=== PATIENT | female | born 1945 | race Caucasian/White ===

== ENCOUNTER 2021-01-28 06:05 | Day surgery (SDC) | payer OTHER ==
[2021-01-28] MEDS ORDERED: Ringers Lactate 1,000 ML IV ONE ×2 (06:39→07:12)
[2021-01-28] MEDS ORDERED: CEFAZOLIN/SWI 1gm 1 GM/10 ML SYR ONE (06:39)
[2021-01-28] MEDS ORDERED: FENTANYL CITR 100 MCG/2 ML ONE (07:04)
[2021-01-28] MEDS ORDERED: dexAMETHasone 4 MG/ML VIAL ONE (07:05)
[2021-01-28] MEDS ORDERED: ROPLVACAINE HCL 40 ML ONE (07:05)
[2021-01-28] MEDS ORDERED: MIDAZOLAM HCL 2 MG/2 ML INJ ONE (07:05)
[2021-01-28] MEDS ORDERED: EPINEPHRINE/PF 1 MG/ML AMP ONE (07:12)
[2021-01-28] MEDS ORDERED: propofoL 200 MG/20 ML VIAL IV ONE (07:38)
[2021-01-28] MEDS ORDERED: ROCURONIUM 50 MG/5 ML VIAL IV ONE (07:39)
[2021-01-28] MEDS ORDERED: LIDOCAINE 2% MPF 5 ML VIAL ONE (07:39)
[2021-01-28] MEDS ORDERED: EPHEDRINE SULF 50 MG/ML VIAL ONE (08:10)
[2021-01-28] MEDS ORDERED: ONDANSETRON 4 MG/2 ML VIAL ONE (08:35)
[2021-01-28] MEDS ORDERED: KETOROLAC 30 MG/ML INJ ONE (09:46)
[2021-01-28 10:13] VITALS: TEMP 97
[2021-01-28 10:20] VITALS: BP 136/68; O2SAT 97
--- NOTE | 2021-01-28 10:56 | P.BOP ---
Preoperative diagnosis: left rotator cuff tear, impingement syndrome, bicipital tenosynovitis Postoperative diagnosis: same, left shoulder SLAP tear Primary procedure: left shoulder arthroscopic rotator cuff repair Secondary procedure: left shoulder arthroscopic SLAP debridement with biceps tenotomy Other procedure(s): left shoulder arthroscopic subacromial decompression Estimated blood loss: 10 cc Specimen: none Findings: see dictation Anesthesia: General Complications: None Implants: 1- 5.5 mm Arthrex corkscrew, 2- 4.75 mm Arthrex swivelock Fluids & blood products: per anesthesia record Transferred to: Recovery Room Condition: Good
[2021-01-28] MEDS ORDERED: HYDROCODONE/APAP 7.5/325 MG TAB ONE (11:02)
--- NOTE | 2021-01-28 11:54 | RAD REPORT ---
EXAM DESCRIPTION: RAD - Shoulder 1 View - 01/28/2021 10:18 am CLINICAL HISTORY: S/P L RCR Postsurgical left shoulder COMPARISON: Shoulder Left Wo Cont dated 10/10/2020 FINDINGS: Mild soft tissue swelling is seen about the left shoulder. Mild arthritic changes are pres ent. No fracture or dislocation seen.
--- NOTE | 2021-01-28 22:45 | OP ---
Date of Procedure: 01/28/2021 Surgeon: Jose Roa MD Preoperative Diagnoses: 1.Left shoulder rotator cuff tear. 2.Left shoulder bicipital tenosynovitis. 3.Left shoulder impingement syndrome. Postoperative Diagnoses: 1.Left shoulder rotator cuff tear. 2.Left shoulder bicipital tenosynovitis. 3.Left shoulder impingement syndrome. 4.Left shoulder SLAP tear. Procedure Performed: 1.Left shoulder arthroscopic rotator cuff repair. 2.Left shoulder arthroscopic SLAP tear debrided with biceps tenotomy. 3.Left shoulder arthroscopic subacromial decompression. Anesthesia: General endotracheal. Fluids: Per Anesthesia record. Estimated Blood Loss: Less than 10 cc. Complications: None. Implants: 1.One 5.5 mm Arthrex corkscrew. 2.Two 4.75 mm Arthrex SwiveLocks. Indication For Procedure: Kristie is a 75-year-old female who presented to my clinic with signs, symp toms, and MRI findings consistent with a left shoulder rotator cuff tear. The patient failed conserv ative treatment measures and continued pain and difficulty with activities of daily living. I discus sed with the patient at length risks and benefits associated with operative and nonoperative treatmen t. She expressed understanding and elected to proceed with operative treatment. Description Of Procedure: After informed consent was obtained, the patient was identified in the pre operative holding area. The left upper extremity was marked. The patient was then taken to PACU whe re she underwent a left upper extremity interscalene block to aid with postoperative pain control. S he was then taken back to the operating room, transferred to the operating table in the supine fashio n and placed under general endotracheal anesthesia. She was then placed in the beach chair position with her extremities well padded. Left upper extremity was examined. The patient had full range of motion without any instability noted. The left upper extremity was then prepped and draped in usual sterile fashion. A time-out was initiated. The correct patient and procedure were confirmed and rere ntified. The patient did receive her preoperative prophylactic antibiotics. A posterior portal was then created and arthroscope was brought in via the posterior portal position. Under direct visualiz ation, an anterior portal was created and a cannula was placed. Diagnostic arthroscopy was performed . The patient had overall no significant chondral injury to humeral head or glenoid surface. The pa tient was noted to have some fraying of the superior labrum consistent with a type 1 SLAP tear which was debrided using the arthroscopic shaver. There was some mild hyperemia of extra-articular biceps tendon and a biceps tenotomy was performed using meniscal biter and anterior labrum and posterior lab rum were stable to probe. The subscapularis was found to be intact. The patient was noted to have a full-thickness tear of the supraspinatus tendon noted on diagnostic arthroscopy. There was no loose bodies found within axillary pouch. The lateral portal was then created. The seamless tube mill operator was then abl e to pass into the joint consistent with a full-thickness rotator cuff tear. The undersurface of the rotator cuff tear was then debrided using the arthroscopic shaver as well as the greater tuberosity supraspinatus footprint was debrided using the arthroscopic shaver to create a bleeding bony bed. Th e arthroscope was then brought into the subacromial space and a subacromial bursectomy was performed. The rotator cuff was then again identified. The patient was noted to have some fraying of her marco coacromial ligament. A spinal needle then displaced laterally acromion for placement of medial row c orkscrew. Stab incision was made just lateral to the acromion and a 5.5 mm double loaded corkscrew w as then placed just lateral to the articular surface. The suture was then passed through the rotator cuff tear in an anterior to posterior fashion and tied in horizontal mattress fashion for overall go od reduction of the rotator cuff. The sutures were then placed in a crisscross fashion in increased surface area of the repair and 2 lateral row anchors were placed, which were 4.75 mm SwiveLock. Amber ining sutures were then cut. Next, attention was taken to subacromial decompression where the arthro scopic asmita was then placed to perform an acromioplasty and to complete the subacromial decompression . The arthroscopic instruments were then removed without complication. The wound was then irrigated thoroughly with normal saline. Subcutaneous tissue was approximated using a 2-0 Vicryl. Skin was a pproximated using a 3-0 Monocryl. Sterile dressings were applied. The patient was awakened and plac ed in a left shoulder immobilizer and transferred back in stable condition. Postoperative Plan: She will be nonweightbearing of her left upper extremity. Physical Therapy will be consulted and the patient will proceed with the medium rotator cuff repair protocol four weeks po stop. CV/MODL Voice ID: [id number] Report ID: [id number]
== END 2021-01-28 11:45 | disposition home or self-care (01) ==
LOC: OR 06:05
PROVIDERS: ATTEND Orthopaedic Surgery Sports Medicine
PROC: 0RHK44Z Insertion of Internal Fixation Device into Left Shoulder Joint, Percutaneous Endoscopic Approach (ICD-10-PCS; 2021-01-28)
PROC: 0RNK4ZZ Release Left Shoulder Joint, Percutaneous Endoscopic Approach (ICD-10-PCS; 2021-01-28)
PROC: 0RBK4ZZ Excision of Left Shoulder Joint, Percutaneous Endoscopic Approach (ICD-10-PCS; 2021-01-28)
PROC: 0MM24ZZ Reattachment of Left Shoulder Bursa and Ligament, Percutaneous Endoscopic Approach (ICD-10-PCS; 2021-01-28)
PROC: 0LQ24ZZ Repair Left Shoulder Tendon, Percutaneous Endoscopic Approach (ICD-10-PCS; principal; 2021-01-28 07:30)
DX: M75.122 Complete rotator cuff tear or rupture of left shoulder, not specified as traumatic (principal); M75.42 Impingement syndrome of left shoulder; M75.22 Bicipital tendinitis, left shoulder; Z20.822 Contact with and (suspected) exposure to COVID-19
CPT/HCPCS: 73020; 29827; 29826; 29822; 29807; U0002; J2704; J1100; J0171; J2250; J3010; J2795; J0690; J7120 ×2; J2405